=== PATIENT | female | born 1955 | race Two or more races ===

== ENCOUNTER → 2018-06-28 15:14 | Outpatient (CLI) | payer BC, SELFPAY ==
--- NOTE | 2018-06-28 15:26 | RAD_ITS ---
HISTORY: CHRONIC PAIN COMPARISON: None FINDINGS: 3 views. Lumbar vertebra show normal height and alignment compared no fracture or suspicious bony lesion. L5-S1 Marked disc space narrowing accompanied by endplate sclerosis, vacuum disc phenomenon, and endplate spurring. L4-5 and L5 which S1 facet joint arthritis. No spondylolisthesis. The SI joints are grossly preserved. Atherosclerotic calcifications. RAD/Lumbar Spine 2 or 3 Views IMPRESSION: 1. L5-S1 advanced degenerative disc disease and spondylosis. 2. Lower lumbar facet joint arthritis. 3. Atherosclerotic calcifications. at 2344 Reported and signed by: Blaine Bhatia MD Electronically Signed: Blaine Bhatia, at 23:41 EST Tel , Service support ,
--- NOTE | 2018-06-28 15:27 | RAD_ITS ---
HISTORY: CHRONIC PAIN COMPARISON: None FINDINGS: 3 views. Thoracic vertebra show normal height and alignment. No fracture or suspicious bony lesion. Mild anterolateral endplate spurring of the mid and lower dorsal levels. Pedicles appear preserved. Thoracic aorta is atherosclerotic. RAD/Thoracic Spine 3 Views IMPRESSION: 1. No fracture or acute disease. 2. Mild degenerative changes. at 4348 Reported and signed by: Blaine Bhatia MD Electronically Signed: Blaine Bhatia, at 23:36 EST Tel , Service support ,
== END ==
PROVIDERS: Family Provider Family Medicine; PCP Family Medicine; Referring Provider Anesthesiology Pain Medicine; Visit Provider Anesthesiology Pain Medicine
DX: M54.9 Dorsalgia, unspecified (principal)
CPT/HCPCS: 72072; 72100

== ENCOUNTER → 2018-07-02 16:57 | Outpatient (CLI) | payer BC, SELFPAY ==
--- NOTE | 2018-07-02 17:30 | MRI_ITS ---
STUDY: MRI LUMBAR SPINE WITHOUT CONTRAST REASON FOR EXAM: Female, 62 years old. Low back pain left hip pain. TECHNIQUE: Standardized fat and water weighted pulse sequences were obtained in the sagittal and axial planes. COMPARISON: Radiographs of the lumbar spine dated June 28, 2018. FINDINGS: T12-L1: Normal endplates. Normal disc height, signal and morphology. Normal bilateral facet joints. Normal central canal and bilateral lateral recesses. Normal bilateral intervertebral neural foramina. Normal lumbar lordosis. There is no substantial scoliosis. Normal conus medullaris that terminates at the L1 level. L1-2: Normal endplates. Normal disc height, signal and morphology. Normal bilateral facet joints. Normal central canal and bilateral lateral recesses. Normal bilateral intervertebral neural foramina. L2-3: There is mild annular disk bulge and osteophyte complex. There is mild degenerative arthropathy of the facet joints. Bilateral neuroforamina are narrowed without MR evidence for nerve impingement. There is mild acquired central canal stenosis. L3-4: There is mild annular disk bulge and osteophyte complex. There is mild degenerative arthropathy of the facet joints. Bilateral neuroforamina are narrowed without MR evidence for nerve impingement. There is mild acquired central canal stenosis. L4-5: There appears to be a mild broad central disc protrusion. There is moderate degenerative arthropathy of the facet joints. There is moderate acquired canal stenosis. Neural foramina are narrowed without evidence for nerve impingement. There is thickening of the ligamentum flavum. L5-S1: There is narrowing of the disc. There is a moderate annular disc bulge and osteophyte complex. There is moderate left-sided facet joint arthropathy. There is severe left-sided neural foraminal narrowing with potential impingement of left L5 nerve root at the neural foramen. The right neural foramen is patent. There is mild central acquired canal stenosis. Normal visualized sacral ala. Normal visualized paraspinous soft tissue structures. MRI/Spine Lumbar (Routine) IMPRESSION: Multilevel degenerative disc disease and degenerative arthropathy of the lumbar spine with acquired canal stenosis, neural foraminal narrowing and potential nerve root impingement, as described. Electronically Signed: Nichole Reed MD at 2:08 EST , Service support ,
== END ==
PROVIDERS: Family Provider Family Medicine; PCP Family Medicine; Referring Provider Anesthesiology Pain Medicine; Visit Provider Anesthesiology Pain Medicine
DX: M54.9 Dorsalgia, unspecified (principal); M79.606 Pain in leg, unspecified
CPT/HCPCS: 72148